=== PATIENT | male | born 1975 | race Caucasian/White ===

== ENCOUNTER 2024-07-23 10:49 | Emergency (ER) | payer OTHER, SELFPAY ==
[2024-07-23 10:50] VITALS: BP 125/58; PULSE 60; RESP 18; TEMP 36.8; O2SAT 97; BMI 25.7
--- NOTE | 2024-07-23 11:17 | HMH.EDGENADL ---
Discharge Plan Disposition Patient Disposition: Home, Self-Care Prescriptions Prescriptions: New pseudoephedrine HCl 120 mg tablet extended release 120 mg PO BID PRN (Reason: nasal congestion) 7 Days Qty: 14 0RF amoxicillin-pot clavulanate 875-125 mg tablet 1 tab PO BID 10 Days Qty: 20 0RF fluticasone furoate 27.5 mcg/actuation spray,suspension 2 spray intranasal DAILY PRN (Reason: allergy symptoms) 30 Days Qty: 9.1 0RF Rx Instructions: into each nostril No Action buprenorphine-naloxone [Suboxone] 8-2 mg Tablet, Sublingual 1 tab SUBLINGUAL DAILY Referrals Follow up/Referrals: Nael Hall MD [Physician] - See instructions Walt Jaimes MD [Primary Care Provider] - See instructions Activity Restrictions/Add. Instructions Additional Instructions/Restrictions: You have evidence of a middle ear infection as discussed. I have also prescribed a decongestant as well as a nasal steroid. I also recommend strongly that you stop smoking as this will help clear infection. If you do not improve in 1 to 2 weeks follow-up with ear nose and throat. Clinical Impressions Clinical Impression: Otitis media Print Language Print Language: Citizen Of [place] Discharge ED Provider: Chad Hidalgo General Adult HPI General Chief complaint: Ear Stated complaint: ear pain Time Seen by Provider: 07/23/24 11:10 Mode of Arrival: Ambulatory Source of Information: Patient Limitations: No Limitations Description of Symptoms (Recalled from ER Triage Doc. by RN): PT REPORTS ONGOING RIGHT EAR AND RIGHT SIDED NECK PAIN ALONG WITH SWELLING TO ROOF OF MOUTH. HAS NOT TAKEN ANYTHING FOR PAIN History of Present Illness HPI narrative: 49-year-old male presents today with right ear pain this been ongoing for the last week or 2. Has significant pain and swelling and pressure in that right ear. Occasionally has some roof of the mouth discomfort as well as some neck discomfort as well. Denies any fevers or chills. Does smoke chronically. Related Data Home Medications ?Medication ?Instructions ?Recorded ?Confirmed buprenorphine 8 mg-naloxone 2 mg 1 tab sublingual DAILY 07/23/24 07/23/24 sublingual tablet Previous Rx's ?Medication ?Instructions ?Recorded amoxicillin 875 mg-potassium 1 tab PO BID 10 days #20 tabs 07/23/24 clavulanate 125 mg tablet fluticasone furoate 27.5 2 spray intranasal DAILY PRN 07/23/24 mcg/actuation nasal allergy symptoms 30 days #9.1 mL spray,suspension pseudoephedrine HCl 120 mg 120 mg PO BID PRN nasal congestion 07/23/24 tablet,extended release 7 days #14 tabs Allergies Allergy/AdvReac Type Severity Reaction Status Date / Time Penicillins AdvReac Mild Nausea Verified 07/23/24 11:03 [facility] Disclaimer: The information contained in this section may have been updated after the patient was seen, as this information can be updated by other users. Medical History (Updated 07/23/24 @ 11:14 by Chad Hidalgo MD) No significant past medical history Social History Smoking Status: Current every day smoker alcohol intake: never current occupational status: other Travel in the last 8 weeks: None ROS Obtained: Yes All systems reviewed & no additional complaints except as documented Physical Exam General General appearance: alert ENT ENT exam: Present other (Right tympanic membrane is erythematous swollen and also opacified with apparent purulence behind the tympanic membrane) Respiratory Respiratory exam: Present normal lung sounds bilaterally Cardiovascular Cardiovascular exam: Present regular rate Neurological Exam Neurological exam: Present alert and oriented X3 Medical Decision Making Medical Records Screening: Per USPSTF and CDC recommendations, given the prevalence of disease in our region, it is our hospital?s policy to screen for HIV and viral Hepatitis for all patients aged 18 and over and those with ongoing risk factors. Dean Inquiry Pt receiving controlled substance: No Vital Signs: 07/23/24 10:50 Temperature 98.2 F Temperature Source Oral Pulse Rate [Radial] 60 Respiratory Rate 18 Blood Pressure [Left Arm] 125/58 L Blood Pressure Mean [Left Arm] 80 Blood Pressure Source [Left Arm] Automatic Cuff Blood Pressure Position [Left Arm] Sitting 02 Sat by Pulse Oximetry 97 Oxygen Delivery Method Room Air Medical Decision Narrative: 49-year-old above history and physical well-appearing nontoxic has evidence of right otitis media will prescribe Augmentin and also give a decongestant as well as nasal Flonase. He has been advised to stop smoking as well. He does appear to have pus behind his right tympanic membrane and have advised that if he is not better in 1 to 2 weeks he may need to follow-up with ENT for surgical drainage but that hopefully will be unlikely. Patient was discharged in stable condition prescription sent to his pharmacy Critical Care Critical Care Time Critical Care Time: No
[2024-07-23 11:29] VITALS: BP 124/66; PULSE 56; RESP 18; TEMP 36.8; O2SAT 99
== END 2024-07-23 11:35 | disposition home or self-care (01) ==
PROVIDERS: Emergency Provider Student in an Organized Health Care Education/Training Program; PCP Family Medicine
DX: H66.91 Otitis media, unspecified, right ear (principal); H92.01 Otalgia, right ear; M54.2 Cervicalgia; Z72.0 Tobacco use
CPT/HCPCS: 99283